=== PATIENT | female | born 1990 | race Caucasian/White ===

== ENCOUNTER → 2016-11-21 | Outpatient (REF) | payer OTHER ==
[~2016-11-21] MED LIST: ACET50TA PO; MOTR200T44 PO; STUATAB PO
[2016-11-21 16:41] LABS: BASO % 0.3 % (0.0-1.0); EOS # 0.2 K/mm3 (0.0-0.50); EOS % 2.6 % (0.0-3.0); LARGE UNSTAINED CELL # 0.1 K/mm3 (0.0-0.4); LARGE UNSTAINED CELL % 1.3 % (0.0-4.0); LYMPH # 2.1 K/mm3 (1.5-6.5); LYMPH % 29.8 % (24.0-44.0); MEAN CORPUSCULAR HEMOGLOBIN 30.5 pg (27.0-33.0); MEAN CORPUSCULAR HGB CONC 33.4 g/dl (32.0-36.5); MEAN CORPUSCULAR VOLUME 91.5 fl (80.0-96.0); MONO # 0.4 K/mm3 (0.0-0.8); MONO % 6.3 % (0.0-5.0); NEUTROPHILS % 59.7 % (36.0-66.0); PLATELET COUNT, AUTOMATED 294 k/mm3 (150-450); RED CELL DISTRIBUTION WIDTH 11.9 % (11.5-14.5); WHITE BLOOD COUNT 6.8 K/mm3 (4.0-10.0)
[2016-11-21 17:43] LABS: ALBUMIN/GLOBULIN RATIO 1.21 (1.00-1.93); ALKALINE PHOSPHATASE 49 U/L (45-117); ALT/SGPT 90 U/L (12-78); ANION GAP 5 MEQ/L (8-16); AST/SGOT 43 U/L (15-37); BILIRUBIN,TOTAL 0.5 MG/DL (0.2-1.0); BLOOD UREA NITROGEN 11 MG/DL (7-18); CALCIUM LEVEL 9.5 MG/DL (8.5-10.1); CARBON DIOXIDE LEVEL 30 MEQ/L (21-32); CHLORIDE LEVEL 106 MEQ/L (98-107); CREATININE FOR GFR 0.68 MG/DL (0.55-1.02); GLOMERULAR FILTRATION RATE > 60.0 (>60); GLUCOSE, FASTING 68 MG/DL (70-105); POTASSIUM SERUM 4.2 MEQ/L (3.5-5.1); SODIUM LEVEL 141 MEQ/L (136-145); TOTAL PROTEIN 7.3 GM/DL (6.4-8.2)
[2016-11-26 14:23] LABS: HEPATITIS C QUANTITATION 219960 IU/mL (.)
== END ==
LOC: M SFHCPLAZ 10:53
PROVIDERS: ATTEND Internal Medicine Infectious Disease
DX: B18.2 Chronic viral hepatitis C (principal)

== ENCOUNTER → 2017-01-02 | Outpatient (REF) | payer OTHER ==
[2017-01-02 19:23] LABS: ALBUMIN 4.2 GM/DL (3.2-5.2); ALBUMIN/GLOBULIN RATIO 1.27 (1.00-1.93); BILIRUBIN,DIRECT 0.2 MG/DL (0.0-0.2); BILIRUBIN,TOTAL 0.5 MG/DL (0.2-1.0); TOTAL PROTEIN 7.5 GM/DL (6.4-8.2)
[2017-01-08 00:09] LABS: HEPATITIS C QUANTITATION HCV Not Detected IU/mL (.)
== END ==
LOC: M SFHCPLAZ 13:08
PROVIDERS: ATTEND Internal Medicine Infectious Disease
DX: B18.2 Chronic viral hepatitis C (principal)

== ENCOUNTER → 2017-06-06 | Outpatient (REF) | payer OTHER ==
[2017-06-06 11:26] LABS: BASO % 0.3 % (0.0-1.0); EOS # 0.2 10^3/uL (0.0-0.50); EOS % 2.4 % (0.0-3.0); IMMATURE GRANULOCYTE % 0.2 % (0-0); LYMPH % 30.6 % (24.0-44.0); MEAN CORPUSCULAR HGB CONC 33.3 g/dl (32.0-36.5); MONO # 0.5 10^3/uL (0.0-0.8); NEUTROPHILS # 3.9 10^3/uL (1.8-7.7); NEUTROPHILS % 59.5 % (36.0-66.0); PLATELET COUNT, AUTOMATED 305 10^3/uL (150-450); RED CELL DISTRIBUTION WIDTH 11.9 % (11.5-14.5); WHITE BLOOD COUNT 6.6 10^3/uL (4.0-10.0)
[2017-06-06 11:46] LABS: ALBUMIN 3.9 GM/DL (3.2-5.2); ALBUMIN/GLOBULIN RATIO 1.11 (1.00-1.93); ALKALINE PHOSPHATASE 46 U/L (45-117); ALT/SGPT 14 U/L (12-78); AST/SGOT 15 U/L (7-37); BILIRUBIN,DIRECT < 0.1 MG/DL (0.0-0.2); BILIRUBIN,TOTAL 0.5 MG/DL (0.2-1.0); TOTAL PROTEIN 7.4 GM/DL (6.4-8.2)
[2017-06-11 08:06] LABS: HEPATITIS C QUANTITATION HCV Not Detected IU/mL (.)
== END ==
LOC: M SFHCPLAZ 08:35
PROVIDERS: ATTEND Internal Medicine Infectious Disease
DX: B18.2 Chronic viral hepatitis C (principal)

== ENCOUNTER → 2018-05-13 | Outpatient (REF) | payer OTHER ==
[2018-05-13 17:00] LABS: ALBUMIN 4.3 GM/DL (3.2-5.2); ALBUMIN/GLOBULIN RATIO 1.19 (1.00-1.93); ALKALINE PHOSPHATASE 48 U/L (45-117); ALT/SGPT 18 U/L (12-78); ANION GAP 9 MEQ/L (8-16); AST/SGOT 13 U/L (7-37); BILIRUBIN,TOTAL 0.3 MG/DL (0.2-1.0); BLOOD UREA NITROGEN 16 MG/DL (7-18); CALCIUM LEVEL 9.3 MG/DL (8.5-10.1); CARBON DIOXIDE LEVEL 27 MEQ/L (21-32); CHLORIDE LEVEL 103 MEQ/L (98-107); CREATININE FOR GFR 0.61 MG/DL (0.55-1.30); GLOMERULAR FILTRATION RATE > 60.0 (>60); GLUCOSE, FASTING 77 MG/DL (70-100); POTASSIUM SERUM 4.2 MEQ/L (3.5-5.1); SODIUM LEVEL 139 MEQ/L (136-145); TOTAL PROTEIN 7.9 GM/DL (6.4-8.2)
== END ==
LOC: M SFHCPLAZ 14:27
DX: Z00.00 Encounter for general adult medical examination without abnormal findings (principal); B18.2 Chronic viral hepatitis C

== ENCOUNTER → 2018-06-01 | Outpatient (CLI) | payer OTHER ==
[~2018-06-01] MED LIST changes: -ACET50TA PO; +MAPA500T17 PO
--- NOTE | 2018-06-02 04:57 | REP ---
Clinical: Pelvic pain. IUD position. Technique: Transabdominal pelvic ultrasound followed by transvaginal examination for better evaluation of the endometrium and adnexa with color Doppler evaluation of the ovaries. Findings: Bladder is unremarkable and measures 6.2 x 9.3 x 10.5 cm . Normal anteverted uterus measures 8.2 x 2.9 x 5.7 cm . The endometrial complex measures 2.9 mm thickness. No discrete uterine or endometrial abnormalities are appreciated. IUD is identified in central, satisfactory position. Right ovary measures 3.0 x 1.9 x 1.6 cm ; Left ovary measures 3.0 x 2.3 x 2.9 cm with 2.2 x 1.6 x 1.7 cm simple appearing physiologic cyst. No pelvic fluid or adnexal mass lesion Impression: 1. IUD in central satisfactory position. Normal uterus. 2. 2.2 cm left ovarian cyst likely simple/physiologic.
== END ==
LOC: M WHC 11:04
PROVIDERS: ATTEND Family Medicine
DX: Z30.431 Encounter for routine checking of intrauterine contraceptive device (principal); N83.202 Unspecified ovarian cyst, left side

== ENCOUNTER 2018-07-03 10:42 | Day surgery (SDC) | payer OTHER ==
[~2018-07-03] VITALS: Ht 157.5 cm; Wt 59.9 kg
[~2018-07-03 10:42] MED LIST changes: +LIDOCAINE 2% INJ 100 MG/5 ML SDV (FOR ANES.) As Ordered ONE; +LR 1,000 ML IV SCH; -MAPA500T17 PO; +MAPA500T2 PO; +MIDAZOLAM INJ 2 MG/2 ML VIAL (J2250) As Ordered ONE; +ONDANSETRON 4MG/2ML VIAL (J2405) As Ordered ONE; +PROPOFOL 200 MG/20 ML VIAL As Ordered ONE; +dexameTHASONE 4 MG/ML 1ML VIAL (J1100) As Ordered ONE; +fentaNYL 100 MCG/2 ML INJECTION (J3010) As Ordered ONE
[2018-07-03 11:21] LABS: HEMATOCRIT 39.9 % (36.0-47.0); HEMOGLOBIN 13.6 g/dl (12.0-15.5); MEAN CORPUSCULAR HEMOGLOBIN 30.8 pg (27.0-33.0); MEAN CORPUSCULAR HGB CONC 34.1 g/dl (32.0-36.5); MEAN CORPUSCULAR VOLUME 90.3 fl (80.0-96.0); PLATELET COUNT, AUTOMATED 258 10^3/uL (150-450); RED BLOOD COUNT 4.42 10^6/uL (4.00-5.40); WHITE BLOOD COUNT 6.6 10^3/uL (4.0-10.0)
[2018-07-03 12:02] LABS: HCG, SERUM QUALITATIVE NEGATIVE (NEGATIVE)
[2018-07-03] MEDS ORDERED: LR 1,000 ML IV SCH (13:15)
[2018-07-03] MEDS ORDERED: PERCOCET 5MG/325MG TAB PO PRN (13:15)
[2018-07-03] MEDS ORDERED: fentaNYL 100 MCG/2 ML INJECTION (J3010) IV PRN (13:15)
[2018-07-03] MEDS ORDERED: ONDANSETRON 4MG/2ML VIAL (J2405) IV PRN (13:15)
[2018-07-03 14:30] VITALS: BP 129/58
--- NOTE | 2018-07-06 14:28 | RO ---
DATE OF PROCEDURE: 07/03/2018 PREOPERATIVE DIAGNOSIS: Retained intrauterine device (IUD). POSTOPERATIVE DIAGNOSIS: Retained intrauterine device. PROCEDURE PERFORMED: Hysteroscopic guided removal of IUD. SURGEON: Rehan Scott DO PE MANAGER: None. ANESTHESIA TYPE: General via laryngeal mask airway (LMA). SPECIMENS SENT TO PATHOLOGY: None. ESTIMATED BLOOD LOSS: 5 mL. FLUIDS REPLACED: 100 mL lactated Ringer's. DRAINS: In-and-out catheter, 20 mL urine output. COMPLICATIONS: None. PREOPERATIVE ANTIBIOTICS: None indicated. INTRAOPERATIVE FINDINGS: Intrauterine, non-imbedded intrauterine device consistent with a Mirena IUD. It was easily removed via hysteroscopic graspers under hysteroscopic guidance. INDICATION: The patient is a 28-year-old with a retained IUD. In-office attempts at IUD removal were unsuccessful. Pelvic ultrasound confirmed intrauterine, proper location of the intrauterine device. The strings were not visualized making it difficult for removal in addition to the patient's discomfort during these attempts. She elected to proceed with hysteroscopic guided IUD removal under anesthesia. PROCEDURE: The patient was counseled and consented on the risks, benefits, indications, and alternatives procedure. Informed consent was obtained. She was taken to the operating room with an IV running, placed on operating room table in dorsal supine position. General anesthesia was administered and the airway secured without any difficulty. She was placed in a high lithotomy position. She was prepared and draped in normal sterile fashion. A time-out was performed per protocol. The bladder was drained with an in-and-out sterile catheter. A sterile speculum was placed with good visualization of the cervix. The anterior lip of the cervix was grasped with a single-tooth tenaculum. Downward traction was applied. The cervix was then sequentially dilated with Bishnu dilators up to #18. The hysteroscope was placed transcervically into the intrauterine cavity with good visualization of the intrauterine device. The hysteroscopic graspers were threaded through and the graspers were used to grab the bottom kathy of the IUD. The IUD was then removed using the graspers. The IUD was removed completely intact. It was noted that the strings had been tucked around the T of the IUD. No missing part of the IUD was confirmed. Minimal bleeding from the cervical os was noted. The hysteroscope was placed. No evidence of uterine perforation. Normal intrauterine cavity was noted. The hysteroscope was removed. Again, no significant bleeding was visualized from the os. The single-tooth tenaculum was removed. Tenaculum sites were noted to be hemostatic. All the instruments were removed from the vagina. Sponge, lap, needle, and sponge counts were correct. The patient tolerated the entire procedure very well. She was transferred to the postanesthesia care unit (PACU) in good and stable condition. YOUNG
== END 2018-07-03 14:34 | disposition home or self-care (01) ==
LOC: M SDC 10:42
PROVIDERS: ATTEND Obstetrics & Gynecology
DX: Z30.432 Encounter for removal of intrauterine contraceptive device (principal)
CPT/HCPCS: 36415; 58562; 84703; 85027; 86850; 86900; 86901; J1100; J2250; J2405; J3010

== ENCOUNTER → 2019-06-15 | Outpatient (CLI) | payer OTHER ==
[~2019-06-15] MED LIST changes: -LIDOCAINE 2% INJ 100 MG/5 ML SDV (FOR ANES.) As Ordered ONE; -LR 1,000 ML IV SCH; -MIDAZOLAM INJ 2 MG/2 ML VIAL (J2250) As Ordered ONE; -ONDANSETRON 4MG/2ML VIAL (J2405) As Ordered ONE; -PROPOFOL 200 MG/20 ML VIAL As Ordered ONE; -dexameTHASONE 4 MG/ML 1ML VIAL (J1100) As Ordered ONE; -fentaNYL 100 MCG/2 ML INJECTION (J3010) As Ordered ONE
[2019-06-15 15:59] LABS: CHLAMYDIA DNA AMPLIFICATION NEGATIVE (NEGATIVE); GC DNA AMPLIFICATION NEGATIVE (NEGATIVE)
== END ==
LOC: M PLALAB 09:12
PROVIDERS: ATTEND Obstetrics & Gynecology
DX: Z34.91 Encounter for supervision of normal pregnancy, unspecified, first trimester (principal)

== ENCOUNTER → 2019-07-08 | Outpatient (CLI) | payer OTHER ==
[2019-07-08 17:54] LABS: BASO % 0.2 % (0.0-1.0); EOS # 0.1 10^3/uL (0.0-0.5); EOS % 0.6 % (0.0-3.0); HEMOGLOBIN 12.3 g/dl (12.0-15.5); LYMPH % 19.6 % (24.0-44.0); MEAN CORPUSCULAR HEMOGLOBIN 29.4 pg (27.0-33.0); MEAN CORPUSCULAR HGB CONC 32.4 g/dl (32.0-36.5); MEAN CORPUSCULAR VOLUME 90.7 fl (80.0-96.0); MONO # 0.5 10^3/uL (0.0-0.8); MONO % 4.6 % (0.0-5.0); NEUTROPHILS # 7.6 10^3/uL (1.5-8.5); NEUTROPHILS % 74.5 % (36.0-66.0); PLATELET COUNT, AUTOMATED 325 10^3/uL (150-450); RED BLOOD COUNT 4.19 10^6/uL (4.00-5.40); WHITE BLOOD COUNT 10.2 10^3/uL (4.0-10.0)
[2019-07-09 11:52] LABS: HIV 1&2 SCREEN CENTAUR NEGATIVE (NEGATIVE); RUBELLA IgG QUALITATIVE IMMUNE (IMMUNE)
[2019-07-09 11:54] LABS: HEPATITIS C VIRUS ABY INDEX > 11.0 INDEX (<0.8)
== END ==
LOC: M PLALAB 12:29
PROVIDERS: ATTEND Obstetrics & Gynecology
DX: Z34.91 Encounter for supervision of normal pregnancy, unspecified, first trimester (principal)

== ENCOUNTER → 2019-07-12 | Outpatient (CLI) | payer OTHER ==
[2019-07-12 13:49] LABS: ALBUMIN 3.4 GM/DL (3.2-5.2); ALT/SGPT 11 U/L (12-78); BILIRUBIN,TOTAL 0.2 MG/DL (0.2-1.0); BLOOD UREA NITROGEN 9 MG/DL (7-18); CALCIUM LEVEL 9.2 MG/DL (8.5-10.1); CARBON DIOXIDE LEVEL 27 MEQ/L (21-32); CHLORIDE LEVEL 106 MEQ/L (98-107); CREATININE FOR GFR 0.52 MG/DL (0.55-1.30); GLOMERULAR FILTRATION RATE > 60.0 (>60); GLUCOSE, FASTING 81 MG/DL (70-100); POTASSIUM SERUM 3.8 MEQ/L (3.5-5.1); SODIUM LEVEL 139 MEQ/L (136-145); TOTAL PROTEIN 6.9 GM/DL (6.4-8.2)
== END ==
LOC: M PLALAB 09:06
PROVIDERS: ATTEND Advanced Practice Midwife
DX: R76.8 Other specified abnormal immunological findings in serum (principal)

== ENCOUNTER → 2019-07-24 | Outpatient (REF) | payer OTHER | LOC: M PLALAB 09:14 | PROVIDERS: ATTEND Obstetrics & Gynecology | DX: Z11.9 Encounter for screening for infectious and parasitic diseases, unspecified (principal) ==

== ENCOUNTER → 2019-08-19 | Outpatient (CLI) | payer OTHER ==
--- NOTE | 2019-08-19 18:08 | REP ---
Obstetric sonography: History: Supervision of . For anatomy. Findings: Scanning through the gravid uterus demonstrates a viable single intrauterine gestation in a variable lie. motion is observed and heart rate is recorded at 140 beats per minute. A posterior low-lying placenta is seen without evidence of abruption. Placenta is grade 1. Closed cervical length measured transabdominally is 3.1 cm. The inferior edge of the placenta is 1.8 cm from the internal cervical os on transabdominal imaging. There is a 1.2 cm cyst in the maternal left ovary consistent with corpus luteum. No anomaly is seen. Facial profile is seen but nose and lips are less than optimally seen. Similarly, less than optimal visualization of the right ventricular outflow tract and spine was achieved due to position. The following additional anatomic structures are identified and felt to be unremarkable: cranium, choroid plexus, cavum, cerebellum and posterior fossa, nuchal fold, four-chamber heart with left ventricular outflow tract, diaphragm, left-sided stomach, abdominal wall cord insertion, three-vessel cord, kidneys and bladder, upper and lower extremities. Biometry chart: BPD 4.1 cm = 18 weeks 3 days HC 14.4 cm = 17 weeks 4 days AC 13.2 cm = 18 weeks 5 days FL 2.6 cm = 17 weeks 6 days HL 2.5 cm = 17 weeks 6 days HC/AC ratio normal 1.09. Cephalic index normal 0.82. Estimated weight 231 grams, 0 pounds 8 ounces, 36 percentile for 18 weeks 4 days. Impression: Viable single intrauterine gestation at 18 weeks 4 days by today's composite sonographic criteria. BIBIANA by sonography January 16, 2020. anatomic survey less than complete regarding face, right ventricular cardiac outflow tract, and spine. Low-lying posterior placenta. Recommend follow up study at which time a transvaginal assessment of the cervix and inferior placental edge can be included.
== END ==
LOC: M WHC 13:49
PROVIDERS: ATTEND Advanced Practice Midwife
DX: Z34.92 Encounter for supervision of normal pregnancy, unspecified, second trimester (principal)

== ENCOUNTER → 2019-09-08 | Outpatient (REF) | payer OTHER | LOC: M PLALAB 11:21 | PROVIDERS: ATTEND Obstetrics & Gynecology | DX: Z34.92 Encounter for supervision of normal pregnancy, unspecified, second trimester (principal) ==

== ENCOUNTER → 2019-10-19 | Outpatient (REF) | payer OTHER ==
[2019-10-19 14:26] LABS: HEMATOCRIT 32.6 % (36.0-47.0); HEMOGLOBIN 10.3 g/dl (12.0-15.5); MEAN CORPUSCULAR HEMOGLOBIN 28.5 pg (27.0-33.0); MEAN CORPUSCULAR HGB CONC 31.6 g/dl (32.0-36.5); MEAN CORPUSCULAR VOLUME 90.1 fl (80.0-96.0); PLATELET COUNT, AUTOMATED 365 10^3/uL (150-450); RED BLOOD COUNT 3.62 10^6/uL (4.00-5.40); WHITE BLOOD COUNT 12.5 10^3/uL (4.0-10.0)
== END ==
LOC: M PLALAB 09:16
PROVIDERS: ATTEND Obstetrics & Gynecology
DX: Z34.92 Encounter for supervision of normal pregnancy, unspecified, second trimester (principal)

== ENCOUNTER → 2019-11-10 | Outpatient (CLI) | payer OTHER ==
--- NOTE | 2019-11-11 03:35 | REP ---
Clinical: History of low-lying placenta Comparison: 08/19/2019 . Findings: Examination demonstrates a single live intrauterine in breech presentation. motion is identified by technologist. Placenta is noted posterior and grade I without evidence for placenta previa or abruption. The placenta measures 5.2 cm from the closed internal os. Amniotic fluid volume is normal. Cervix measures 3.3 cm in length and appears closed. No evidence for nuchal cord. A 5.9 cm simple right maternal ovarian cyst is identified. Gestational age by LMP 30 weeks 3 days with BIBIANA 01/16/2020 . Gestational age by current measurements 29 weeks 5 days with BIBIANA 01/21/2020 . FHR equals 135 beats per minute. Estimated weight 1507 grams ( 35th percentile). Amniotic fluid index: 14.0 cm Anatomical assessment demonstrates normal structures including facial features and spine. Continued limited evaluation of the cardiac ventricular outflow tract. Impression: 1. Single live intrauterine in breech presentation demonstrating appropriate estimated weight and growth. 2. Continued limited evaluation of the right cardiac ventricular outflow tract due to positioning. Remainder of the anatomical assessment and junction with prior examination is complete and normal. 3. No evidence for placenta previa. 4. 5.9 cm simple right ovarian cyst noted.
== END ==
LOC: M WHC 09:08
PROVIDERS: ATTEND Advanced Practice Midwife
DX: O32.1XX0 Maternal care for breech presentation, not applicable or unspecified (principal); O44.43 Low lying placenta NOS or without hemorrhage, third trimester; Z3A.30 30 weeks gestation of pregnancy; N83.201 Unspecified ovarian cyst, right side; O34.83 Maternal care for other abnormalities of pelvic organs, third trimester

== ENCOUNTER 2020-01-21 | Inpatient (IN) | payer OTHER ==
[2020-01-21] MEDS ORDERED: PROMETHAZINE INJ 25 MG/ML VIAL (J2550) ONE (03:50)
[2020-01-21] MEDS ORDERED: BUTORPHANOL 2 MG/ML INJ (J0595) ONE (03:50)
[2020-01-21] MEDS ORDERED: ACETAMINOPHEN 500 MG TAB ONE ×2 (10:05→20:13)
[2020-01-21] MEDS ORDERED: OXYTOCIN 30 UNITS IN 0.9% NaCl 500ML IV BAG (J2590) ONE (12:54)
[2020-01-21] MEDS ORDERED: IBUPROFEN 800 MG TAB ONE (15:10)
[2020-01-22] MEDS ORDERED: IBUPROFEN 800 MG TAB ONE (05:48)
[2020-03-08 21:24] LABS: HEMATOCRIT 26.8 % (36.0-47.0); MEAN CORPUSCULAR HEMOGLOBIN 22.3 pg (27.0-33.0); MEAN CORPUSCULAR HGB CONC 29.9 g/dl (32.0-36.5); MEAN CORPUSCULAR VOLUME 74.9 fl (80.0-96.0); PLATELET COUNT, AUTOMATED 331 10^3/uL (150-450); RED BLOOD COUNT 3.58 10^6/uL (4.00-5.40); WHITE BLOOD COUNT 14.8 10^3/uL (4.0-10.0)
== END 2020-01-22 12:50 | disposition home or self-care (01) | DRG 560 ==
LOC: M LDI
PROVIDERS: ADMIT Specialist; ATTEND Specialist
PROC: 10E0XZZ Delivery of Products of Conception, External Approach (ICD-10-PCS; principal; 2020-01-21)
DX: O48.0 Post-term pregnancy (principal); Z37.0 Single live birth; Z3A.40 40 weeks gestation of pregnancy

== ENCOUNTER 2021-04-16 09:57 | Emergency (ER) | payer OTHER ==
[~2021-04-16] VITALS: Ht 157.5 cm; Wt 59.5 kg
[2021-04-16] MEDS: NS 1,000 ML IV SCH ×2 (10:00→17:22)
--- OUTSIDE RECORDS SUMMARY | 2021-04-16 10:04 | CCD ---
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 98 Active confirmed 62362666 Problem Cigarette smoker F17.210 Active confirmed 65 780344 Problem Anxiety and depression F41.9 Active confirmed 032513690 Problem Chronic hepatitis C without hepatic coma B18.2 Active confirmed 493878454 Problem Alcohol abuse, 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 Active confirmed 991068523 ALLERGIES Allergen (clinical drug ingredient) Drug/Non Drug Allergy do cumented on EMR Reaction Allergy Type Onset Date Status Seasonal Unknown Non Drug Allergy Active ENCOUNTERS from 1992 to 2021-04-05 Encounter Location Date Provider Diagnosis [facility] [address] [place] [id number] [place] [address] Mar, Lynn Villegas Encounter for ins ertion of mirena IUD Z30.430 and Screen for sexually transmitted diseases Z11.3 IMMUNIZATIONS Vaccine Route Administration Date Status HPV9 0.5mL Gardasil 9 Unknown Jun 20, 2008 Administer ed Meningococcal 0.5mL Menactra Groups A,C,Y & W-135 Unknown Mar 22, 2008 Administered TDAP 0.5mL (Boostrix) IM Intramuscular November 24, 2019 Administe red Hepatitis B Ped & Adol 0.5mL Engerix-B Unknown December 11, 2004 Administered TDAP 0.5mL (Boostrix) Unknown Mar 22, 2008 Administer ed TDAP 0.5mL (Boostrix) Unknown Apr 03, 2014 Administer ed HPV9 0.5mL Gardasil 9 Unknown Apr 04, 2008 Administer ed DTAP 0.5mL Infanrix Unknown 1992 Administered Influenza 6mo & up Fluzone Unknown Apr 03, 2009 Admin istered Influenza 6mo & up Fluzone Unknown Mar 29, 2009 Admin istered HIB 0.5mL Unknown 1992 Administered HIB 0.5mL Unknown 1992 Administered DTAP 0.5mL Infanrix Unknown Feb 17, 1996 Administered DTAP 0.5mL Infanrix Unknown August 23, 1993 Administered DTAP 0.5mL Infanrix Unknown May 04, 1993 Administered DTAP 0.5mL Infanrix Unknown 1992 Administered Influenza 6mo & up Fluzone IM Intramuscular May 13, 2018 Admi nistered Hepatitis A Ped & Adol 0.5mL Havrix Unknown Apr 04, 2008 Administered Imm: IPV 0.5mL Polio Unknown 1992 Administere d Imm: IPV 0.5mL Polio Unknown 1992 Administere d Influenza 6mo & up Fluzone Unknown Apr 22, 2016 Other s Influenza 6mo & up Fluzone IM Intramuscular Mar 19, 2017 Admi nistered Influenza 6mo & up Fluzone Unknown Mar 19, 2017 Admin istered Imm: IPV 0.5mL Polio Unknown August 23, 1993 Administere d Imm: IPV 0.5mL Polio Unknown Feb 17, 1996 Administere d Hepatitis B Ped & Adol 0.5mL Engerix-B Unknown October 04, 2004 Administered SOCIAL HISTORY Tobacco Use: Social History Observation Description Date Details (start date - stop date) Former Smoker Sex Assigned At : Social History Observation Description Sex Assigned At Unknown Education: Question Answer Notes Level of Education: GED continuing educa tion with College @ [employer] 2015 Audit Question Answer Notes Total Score: 1 Interpretation: Alcohol Education Sexual Hx: Question Answer Notes Had sex in the last 12 months (vaginal, oral, or anal)? Yes LMP: Mirena Have you ever had an STD? No Prevention Strategies discussed: Other with Men only Use protection? No Drug and Alcohol Question Answer Notes Total Score: 0 Interpretation: No problems reported Alcohol Screening: Question Answer Notes Did you have a drink containing alcohol in the past year? No Points 0 Interpretation Negative Tobacco Use: Question Answer Notes Are you a: former smoker former smoker quit Additional Findings: Tobacco User Light cigarette smoker ((1 -9 cigs/day) How long has it been since you last smoked? 1-3 months REASON FOR REFERRAL No Information VITAL SIGNS Weight 128 lbs Mar, Weight-kg 58.06 kg Mar, Height 62 in Mar, BMI 23.41 kg/m2 Mar, Blood pressure systolic 120 mm Hg Mar, Blood pressure diastolic 76 mm Hg Mar, MEDICATIONS Medication SIG (Take, Route, Frequency, Duration) Notes Start Da te End Date Status Omeprazole 20 MG 1 capsule 30 minutes before morning meal Orally Once a day for 30 day(s) Not-Taking Wrist Splint - as directed right wrist q night for 99 months Mar, Not-Taking Wrist Splint - as directed right wrist dx: M77.8 for 99 months Apr, Not-Taking Mirena 20 MCG/24HR Intrauterine Placed 06/2014 Not-Taking Promethazine HCl 25 MG 1 tablet as needed Orally every 6 hrs for 30 day(s) May, Not-Taking Nicotine Step 2 14 MG/24HR 1 patch to skin Transdermal Once a day for 30 day(s) Apr, Not-Taking 27-1 MG 1 tablet Orally Once a day Not-Taking PROCEDURES from 1992 to 2021-04-05 Procedure Date Ordered Result Body Site URINE TEST 2021-04-03 Negative Medication: Mirena 52 mg (Levonorgestrel -releasing intrauterine contraceptive system) 2021-04-03 N/A RESULTS No Results REASON FOR VISIT mirena insert. Delivered December 2019. No current contraception. LMP last week. 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 Goals Section No Information Health Concerns No Information MEDICAL EQUIPMENT No Information MENTAL STATUS No Information FUNCTIONAL STATUS No Information ASSESSMENTS Encounter Date Diagnosis Assessment Notes Treatment Notes Treatm ent Clinical Notes Mar, Screen for sexually transmitted diseases (ICD-10 - Z11.3) Mar, Encounter for insertion of mirena IUD (ICD-10 - Z30.430) PLAN OF TREATMENT Treatment Notes Test Name Order Date Vaginitis Plus (VG+) with Yaima (NuSwab) 2021-04-03 Next Appt Details 4 Weeks Reason:annual/IUD check Provider Name:Lynn Villegas, 2021-05-03 10:20:00 AM, [address] [facility], , [place], [address], Follow Up:4 Weeksannual/IUD check Insurance Providers Payer Name Payer Address Payer Phone Insured Name Patient Relati onship to Insured Coverage Start Date Coverage End Date FOR[facility] [employer] [address] [facility] [phone] TRINY VERA self
--- OUTSIDE RECORDS SUMMARY | 2021-04-16 10:04 | CCD ---
Author Author Rebecca Schmitd Organization Unknown Address [address] [address] Phone Care Team Providers Care Legal Job Titles Name Role Phone Neli Schmidt PCP Allergies, Adverse Reactions, Alerts No Data in Section Problem List Concept Problem Description Status Start Date Created Date Resolv ed Date Snomed Code F43.22 Adjustment Disorder, With anxiety Active 2020 Medications No Data in Section Social History Social History Element Description Concept Effective Date Smoking Status Unknown if ever smoked [id number] Immunizations No Data in Section Vital Signs No Data in Section Procedures Date Concept Id Description Targeted Site Concept Targeted Site Concept Type 03/07/2021 13204 Extended Individual Psychotherapy - 45 min CPT Patient has no history of implantable de vices Encounters Encounter Start Date End Date Encounter Type Description Diagnosis Di agnosis Desc Location Author First Name Author Last Name Npid Taxonomy Cod e Taxonomy Desc Phone Number Location Addr1 Location Addr2 Location [facility] Location [facility] Location [facility] [id number] 03/07/2021 03/07/2021 05542 Extended Individual Psych otherapy - 45 min F43.22 Adjustment disorder with anxiety [facility] Brayan Quinteros [phone] [id number] [employer] [phone] [address] [address] Plan of Treatment No Data in Section Lab Results No Data in Section Instructions No Data in Section Insurance Providers Insurance Id Policy Effective Date Policy Thru Date Company N karol [id number] 2020 [employer] Managed Evelyn eckert
--- OUTSIDE RECORDS SUMMARY | 2021-04-16 10:04 | CCD ---
Author Author Rebecca Quiroz Organization Unknown Address [address] [address] Phone Care Team Providers Care Leather Stretcher Name Role Phone Melvi Quiroz PCP Allergies, Adverse Reactions, Alerts No Data in Section Problem List Concept Problem Description Status Start Date Created Date Resolv ed Date Snomed Code F43.22 Adjustment Disorder, With anxiety Active 2020 Medications No Data in Section Social History Social History Element Description Concept Effective Date Smoking Status Unknown if ever smoked [id number] Immunizations No Data in Section Vital Signs Encounter Date Height Ins Weight Lbs Bmi Bp Systolic Bp Diastoli c Oxygen Saturation Respiration Rate Pulse Rate Body Temp Head Circumference Heigh t Lying 04/06/2021 62.25 103.00 18.69 102 60 0.00 18 84 0.00 0.0 0. 00 Procedures Date Concept Id Description Targeted Site Concept Targeted Site Concept Type 04/06/2021 87618 Health Monitoring - 15 Min CPT Patient has no history of implantable de vices Encounters Encounter Start Date End Date Encounter Type Description Diagnosis Di agnosis Desc Location Author First Name Author Last Name Npid Taxonomy Cod e Taxonomy Desc Phone Number Location Addr1 Location Addr2 Location [facility] Location [facility] [id number] 04/06/2021 04/06/2021 11996 Health Monitoring - 15 Min F 43.22 Adjustment disorder with anxiety [facility] Kelleyhimanshu Alfredo olea [id number] Licensed Practical Nurse [phone] [address] [address] Plan of Treatment No Data in Section Lab Results No Data in Section Instructions No Data in Section Functional Cognitive Status No Data in Section Insurance Providers Insurance Id Policy Effective Date Policy Thru Date Company N karol [id number] 2020 [employer] Managed Evelyn eckert
--- OUTSIDE RECORDS SUMMARY | 2021-04-16 10:04 | CCD ---
Author Author [facility] Organization [facility] Address Unknown Phone Unavailable Care Team Providers Care Music Librarian Name Role Phone Maring, Loc PA Unavailable Unavailable Maring, Loc PA Unavailable Unavailable Maring, Loc PA Unavailable Unavailable Maring, Loc PA Unavailable Unavailable Maring, Loc PA Unavailable Unavailable Maring, Loc PA Unavailable Unavailable Maring, Loc PA Unavailable Unavailable Maring, Loc PA Unavailable Unavailable Maring, Loc PA Unavailable Unavailable Maring, Loc PA Unavailable Unavailable Maring, Loc PA Unavailable Unavailable Maring, Loc PA Unavailable Unavailable Maring, Loc PA Unavailable Unavailable Maring, Loc PA Unavailable Unavailable Maring, Loc PA Unavailable Unavailable Maring, Loc PA Unavailable Unavailable Nicci Fry MD Unavailable Unavailable Nicci Fry MD Unavailable Unavailable Nicci Fry MD Unavailable Unavailable Nicci Fry MD Unavailable Unavailable Nicci Fry MD Unavailable Unavailable Nicci Fry MD Unavailable Unavailable Nicci Fry MD Unavailable Unavailable Nicci Fry MD Unavailable Unavailable Nicci Fry MD Unavailable Unavailable Nicci Fry MD Unavailable Unavailable Nicci Fry MD Unavailable Unavailable Nicci Fry MD Unavailable Unavailable Nicci Fry MD Unavailable Unavailable Nicci Fry MD Unavailable Unavailable Nicci Fry MD Unavailable Unavailable Nicci Fry MD Unavailable Unavailable Nicci Fry MD Unavailable Unavailable Nicci Fry MD Unavailable Unavailable Nicci Fry MD Unavailable Unavailable Nicci Fry MD Unavailable Unavailable Nicci Fry MD Unavailable Unavailable Nicci Fry MD Unavailable Unavailable Nicci Fry MD Unavailable Unavailable Nicci Fry MD Unavailable Unavailable Nicci Fry MD Unavailable Unavailable Nicci Fry MD Unavailable Unavailable Nicci Fry MD Unavailable Unavailable Nicci Fry MD Unavailable Unavailable Nicci Fry MD Unavailable Unavailable Nicci Fry MD Unavailable Unavailable Nicci Fry MD Unavailable Unavailable Nicci Fry MD Unavailable Unavailable Nicci Fry MD Unavailable Unavailable Nicci Fry MD Unavailable Unavailable Nicci Fry MD Unavailable Unavailable Nicci Fry MD Unavailable Unavailable Nicci Fry MD Unavailable Unavailable Nicci Fry MD Unavailable Unavailable Nicci Fry MD Unavailable Unavailable Nicci Fry MD Unavailable Unavailable Nicci Fry MD Unavailable Unavailable Nicci Fry MD Unavailable Unavailable Nicci Fry MD Unavailable Unavailable Nicci Fry MD Unavailable Unavailable Nicci Fry MD Unavailable Unavailable Nicci Fry MD Unavailable Unavailable Nicci Fry MD Unavailable Unavailable Nicci Fry MD Unavailable Unavailable Nicci Fry MD Unavailable Unavailable Nicci Fry MD Unavailable Unavailable Nicci Fry MD Unavailable Unavailable Nicci Fry MD Unavailable Unavailable Nicci Fry MD Unavailable Unavailable Nicci Fry MD Unavailable Unavailable Nicci Fry MD Unavailable Unavailable Nicci Fry MD Unavailable Unavailable Nicci Fry MD Unavailable Unavailable Nicci Fry MD Unavailable Unavailable Nicci Fry MD Unavailable Unavailable Nicci Fry MD Unavailable Unavailable Nicci Fry MD Unavailable Unavailable Nicci Fry MD Unavailable Unavailable Nicci Fry MD Unavailable Unavailable Nicci Fry MD Unavailable Unavailable Nicci Fry MD Unavailable Unavailable Nicci Fry MD Unavailable Unavailable Nicci Fry MD Unavailable Unavailable Nicci Fry MD Unavailable Unavailable Nicci Fry MD Unavailable Unavailable Nicci Fry MD Unavailable Unavailable Nicci Fry MD Unavailable Unavailable Nicci Fry MD Unavailable Unavailable Nicci Fry MD Unavailable Unavailable Nicci Fry MD Unavailable Unavailable Nicci Fry MD Unavailable Unavailable Nicci Fry MD Unavailable Unavailable Nicci Fry MD Unavailable Unavailable Nicci Fry MD Unavailable Unavailable Nicci Fry MD Unavailable Unavailable Nicci Fry MD Unavailable Unavailable Nicci Fry MD Unavailable Unavailable Nicci Fry MD Unavailable Unavailable Nicci Fry MD Unavailable Unavailable Nicci Fry MD Unavailable Unavailable Nicci Fry MD Unavailable Unavailable Nicci Fry MD Unavailable Unavailable Nicci Fry MD Unavailable Unavailable Nicci Fry MD Unavailable Unavailable Nicci Fry MD Unavailable Unavailable Nicci Fry MD Unavailable Unavailable Nicci Fry MD Unavailable Unavailable Nicci Fry MD Unavailable Unavailable Nicci Fry MD Unavailable Unavailable Neli Schmidt Unavailable Rothimanshu, Melvi Unavailable Unavailable Sheldon, Wallula Lida Unavailable Unavailable Sheldon, Wallula Lida Unavailable Unavailable Sheldon, Wallula Lida Unavailable Unavailable Sheldon, Wallula Lida Unavailable Unavailable Sheldon, Wallula Lida Unavailable Unavailable Sheldon, Wallula Lida Unavailable Unavailable Sheldon, Wallula Lida Unavailable Unavailable Sheldon, Wallula Lida Unavailable Unavailable Sheldon, Wallula Lida Unavailable Unavailable Sheldon, Wallula Lida Unavailable Unavailable Sheldon, Wallula Lida Unavailable Unavailable Sheldon, Wallula Lida Unavailable Unavailable Shedlon, Wallula Lida Unavailable Unavailable Re-disclosure Warning The records that you are about to access may contain information from federally-assisted alcohol or drug abuse programs. If such information is present, then the following federally mandated warning applies: This information has been disclosed to you from records protected by federal confidentiality rules (42 CFR part 2). The federal rules prohibit you from making any further disclosure of this information unless further disclosure is expressly permitted by the written consent of the person to whom it pertains or as otherwise permitted by 42 CFR part 2. A general authorization for the release of medical or other information is NOT sufficient for this purpose. The Federal rules restrict any use of the information to criminally investigate or prosecute any alcohol or drug abuse patient.The records that you are about to access may contain highly sensitive health information, the redisclosure of which is protected by Article 27-F of the [place] State Public Health law. If you continue you may have access to information: Regarding HIV / AIDS; Provided by facilities licensed or operated by the [facility] Office of Mental Health; or Provided by the [facility] Office for People With Developmental Disabilities. If such information is present, then the following [facility] mandated warning applies: This information has been disclosed to you from confidential records which are protected by state law. State law prohibits you from making any further disclosure of this information without the specific written consent of the person to whom it pertains, or as otherwise permitted by law. Any unauthorized further disclosure in violation of state law may result in a fine or mcc sentence or both. A general authorization for the release of medical or other information is NOT sufficient authorization for further disc losure. Family History Family Member Name Family Member Gender Family Member Status Date o f Status Description Data Source(s) Unknown Unknown Problem MEDENT ([facility], ) Unknown Male Problem [facility] ([facility] Encounters Encounter Providers Location Date Indications Data Source(s ) Extended Individual Psychotherapy - 45 min Attender: [facility] 04/06/2021 12:15:00 PM EDT - 04/06/2021 12:15:00 PM EDT [facility] ([facility]) Health Monitoring - 15 Min Attender: Melvi Quiroz [facility] 04/06/2021 11:15:00 AM EDT - 04/06/2021 11:15:00 AM EDT [facility] ([facility]) Attender: Melvi Quiroz 04/06/2021 12:00:00 AM EDT [facility] ([facility]) Attender: Neli Archibaldce 04/06/2021 12:00:00 AM EDT [facility] ([facility]) ([place]) [facility] Procedure [address] [place] [address] 04/03/2021 12:00:00 AM EDT eCW1 ([facility]) Extended Individual Psychotherapy - 45 min Attender: [facility] 03/07/2021 12:00:00 PM EDT - 03/07/2021 12:00:00 PM EDT [facility] ([facility]) Attender: Neli Brayan 03/07/2021 12:00:00 AM EDT [facility] ([facility]) Extended Individual Psychotherapy - 45 min Attender: [facility] 02/21/2021 12:00:00 PM EDT - 02/21/2021 12:00:00 PM EDT [facility] ([facility]) Attender: Neli Schmidt 02/21/2021 12:00:00 AM EDT [facility] ([facility]) Extended Individual Psychotherapy - 45 min Attender: Matthew eleonora [facility] 01/24/2021 12:00:00 PM EDT - 01/24/2021 12:00:00 PM EDT [facility] ([facility]) Attender: Neli Schmidt 01/24/2021 12:00:00 AM EDT [facility] ([facility]) Extended Individual Psychotherapy - 45 min Attender: Matthew eleonora [facility] 01/10/2021 12:00:00 PM EDT - 01/10/2021 12:00:00 PM EDT [facility] ([facility]) Attender: Neli Archibaldce 01/10/2021 12:00:00 AM EDT [facility] ([facility]) Extended Individual Psychotherapy - 45 min Attender: Matthew eleonora [facility] 12/27/2020 12:00:00 PM EDT - 12/27/2020 12:00:00 PM EDT [facility] ([facility]) Attender: Neli Archibaldce 12/27/2020 12:00:00 AM EDT [facility] ([facility]) Psychiatric Diagnostic Evaluation (Non-Medical) Attender: Sanjay Schmidt [facility] 12/14/2020 10:00:00 AM EDT - 12/14/2020 10:00:00 AM EDT [facility] ([facility]) Attender: Neli Archibaldce 12/14/2020 12:00:00 AM EDT [facility] ([facility]) Brief Individual Psychotherapy - 30 min Attender: Neli mckeon [facility] 11/24/2020 02:00:00 AM EDT - 11/24/2020 02:00:00 AM EDT [facility] ([facility]) Attender: Neli Schmidt 11/24/2020 12:00:00 AM EDT [facility] ([facility]) Outpatient Attender: Loc NEGRON 09/23/19 01:50:58 PM EDT - 09/22/2020 02:26:53 PM EDT [facility] ([facility] ) DAYAMI TarangoP-C: [address] [place] [address], Ph. Attender: Lida Sheldon [facility] 07/11/2020 12:00:00 AM EST [facility] ([facility]) Carlos Fry MD: [address] [place] [address], Ph. Attender: Carlos Fry MD [facility] 06/13/2020 12:00:00 AM EST [facility] ([facility]) Carlos Fry MD: [address] [place] [address], Ph. Attender: Carlos Fry MD [facility] 06/13/2020 12:00:00 AM EST [facility]ERY[facility] ([facility]) Carlos Fry MD: [address] [place] [address], Ph. Attender: Carlos Fry MD [facility] 06/13/2020 12:00:00 AM EST [facility] ([facility]) Functional Status Immunizations Vaccine Date Status Description Data Source(s) COVID-19, mRNA, LNP-S, PF, 100 mcg/0.5 mL dose 07/11/2020 11 :08:17 AM EST completed 10.5 mL [facility] ([facility]) COVID-19 VACCINE Moderna 07/11/2020 12:00:00 AM EST [facility] Complete: YESThis Data wa s Submitted to [facility] COVID-19, mRNA, LNP-S, PF, 100 mcg/0.5 mL dose 06/13/2020 10 :39:41 AM EST completed 06/13/20200.5 mL [facility]ERYL ([facility]) COVID-19, mRNA, LNP-S, PF, 100 mcg/0.5 mL dose 06/13/2020 10 :39:41 AM EST completed 06/13/20200.5 mL CHERYL ([facility]) COVID-19, mRNA, LNP-S, PF, 100 mcg/0.5 mL dose 06/13/2020 10 :39:41 AM EST completed 06/13/20200.5 mL [facility]ERYL ([facility]) COVID-19 VACCINE Moderna 06/13/2020 12:00:00 AM EST completed [facility] Vaccine Series Complete: NOThis Data was Submitted to [facility] Via [employer]. Medications No Information Insurance Providers Payer name Policy type / Coverage type Policy ID Covered green party ID Covered green party's relationship to krueger Policy Krueger Plan Information [facility] COMMUNITY PLAN [facility] [id number] SP [id number] [facility] COMMUNITY PLAN [facility] [id number] SP [id number] [facility] Commercial [id number] Self 1 [id number] [facility] Commercial [id number] Self 1 [id number] [facility] Commercial [id number] Self 1 [id number] [facility] Commercial [id number] Self 1 [id number] [facility] o Commercial [id number] Self 1 [id number] [facility] [id number] Self 1 [id number] [facility] Commercial [id number] Self 1 [id number] [facility] [id number] Employee [id number] [facility] Commercial Insurance Co. [id number] Self [id number] Medicaid S UNAVAILABLE S UNAVAILA BLE SELF PAY UNAVAILABLE SP UNAVAILA BLE UN COMMUNITY PLAN [facility] [id number] SP [id number] MEDICAID - O/P EMERGENCY ROOM [id number] Medicaid S [id number] Managed Care BCBS P [id number] S [id number] [facility] O [id number] S [id number] [facility] Health Maintenance Organization (HMO) [id number] Self [id number] ANSI-Medicaid [id number] ANSI-Medicaid [id number] ANSI-Medicaid [id number] [facility] COMMUNITY PLAN [facility] [id number] SP [id number] MEDICAID [id number] SP [id number] [employer]IC[employer] XIX O [id number] 18 [id number] Problems, Conditions, and Diagnoses Code Display Name Description Problem Type Effective Dates Data Source(s) F43.22 Adjustment disorder with anxiety Adjustment Diso rder, With anxiety Condition 04/06/2021 12:00:00 AM EDT [facility] ([facility]) [id number] SNOMED CT Concept SNOMED CT Concept Problem 03/30 05:36:13 PM EDT [facility] ([facility]) [id number] SNOMED CT Concept SNOMED CT Concept Problem 03/30 05:36:13 PM EDT [facility] ([facility]) [id number] SNOMED CT Concept SNOMED CT Concept Problem 03/30 05:36:13 PM EDT [facility] ([facility]) Surgeries/Procedures Procedure Description Date Indications Data Source(s) 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 FACTOR REDJ SPX 15 MIN 04/06/2021 12:00:00 AM EDT - 04/06/2021 12:00:00 AM EDT [facility] 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 FACTOR REDJ SPX 15 MIN 04/06 12:00:00 AM EDT [facility] ([facility]) Extended Individual Psychotherapy - 45 min 04/06/2021 12:00:00 AM EDT - 04/06/2021 12:00:00 AM EDT [facility] Extended Individual Psychotherapy - 45 min 12:00:00 AM EDT [facility] ([facility]) Medication: Mirena 52 mg (Levonorgestrel -releasing intrauterine contraceptive system) 04/03/2021 12:00:00 AM EDT eCW1 ([facility]) URINE TEST 04/03/2021 12:00:00 AM EDT eCW1 ([facility]) Extended Individual Psychotherapy - 45 min 03/07/2021 12:00:00 AM EDT - 03/07/2021 12:00:00 AM EDT [facility] Extended Individual Psychotherapy - 45 min 12:00:00 AM EDT [facility] ([facility]) Extended Individual Psychotherapy - 45 min 02/21/2021 12:00:00 AM EDT - 02/21/2021 12:00:00 AM EDT [facility] Extended Individual Psychotherapy - 45 min 12:00:00 AM EDT [facility] ([facility]) Extended Individual Psychotherapy - 45 min 01/24/2021 12:00:00 AM EDT - 01/24/2021 12:00:00 AM EDT [facility] Extended Individual Psychotherapy - 45 min 12:00:00 AM EDT [facility] ([facility]) Extended Individual Psychotherapy - 45 min 01/10/2021 12:00:00 AM EDT - 01/10/2021 12:00:00 AM EDT [facility] Extended Individual Psychotherapy - 45 min 12:00:00 AM EDT [facility] ([facility]) Extended Individual Psychotherapy - 45 min 12/27/2020 12:00:00 AM EDT - 12/27/2020 12:00:00 AM EDT [facility] Extended Individual Psychotherapy - 45 min 12:00:00 AM EDT [facility] ([facility]) Psychiatric Diagnostic Evaluation (Non-Medical) 12/14/2020 12:00:00 AM EDT - 12/14/2020 12:00:00 AM EDT [facility] Psychiatric Diagnostic Evaluation (Non-Medical) 2020 12:00:00 AM EDT [facility] ([facility]) Brief Individual Psychotherapy - 30 min 11/24/2020 12:00:00 AM EDT - 11/24/2020 12:00:00 AM EDT [facility] Brief Individual Psychotherapy - 30 min 11/24/2020 12: 00:00 AM EDT [facility] ([facility]) Results ID Date Data Source [id number] 06/11/2020 12:00:00 AM EST [facility] Name Value Range Interpretation Code Description Data Tori rce(s) Supporting Document(s) SARS coronavirus 2 RNA [Presence] in Res piratory specimen by ALEAH with probe detection [facility] This lab was ordered by April Max and reported by [facility]. ID Date Data Source [id number] 06/11/2020 12:00:00 AM [facility] Name Value Range Interpretation Code Description Data Tori rce(s) Supporting Document(s) Carestart Rapid COVID Antigen Test [facility] This lab was reported by April campos. Procedure Social History Code Duration Value Status Description Data Source(s ) Smoking 04/06/2021 12:00:00 AM EDT Unknown if ever smoked comp leted Unknown if ever smoked [facility] ([facility]) Smoking 04/03/2021 12:00:00 AM EDT Former Smoker completed Former Smoker eCW1 ([facility]) Smoking 03/07/2021 12:00:00 AM EDT Unknown if ever smoked comp leted Unknown if ever smoked [facility] ([facility]) Smoking 02/21/2021 12:00:00 AM EDT Unknown if ever smoked comp leted Unknown if ever smoked [facility] ([facility]) Smoking 01/24/2021 12:00:00 AM EDT Unknown if ever smoked comp leted Unknown if ever smoked [facility] ([facility]) Smoking 01/10/2021 12:00:00 AM EDT Unknown if ever smoked comp leted Unknown if ever smoked [facility] ([facility]) Smoking 12/27/2020 12:00:00 AM EDT Unknown if ever smoked comp leted Unknown if ever smoked [facility] ([facility]) Smoking 12/14/2020 12:00:00 AM EDT Unknown if ever smoked comp leted Unknown if ever smoked [facility] ([facility]) Smoking 11/24/2020 12:00:00 AM EDT Unknown if ever smoked comp leted Unknown if ever smoked [facility] ([facility]) Vital Signs ID Date Data Source UNK Name Value Range Interpretation Code Description Data Source(s) Body height 62.25 in Normal (applies to non-numeric resu lts) 62.25 in [facility] ([facility]) Body weight Measured 103.00 lbs Normal (applies to n on-numeric results) 103.00 lbs [facility] ([facility]) Body mass index (BMI) [Ratio] 18.69 kg/m2 No rmal (applies to non-numeric results) 18.69 kg/m2 [facility] ([facility]) Systolic blood pressure 102 mm[Hg] Normal (applies t o non-numeric results) 102 mm[Hg] [facility] ([facility]) Diastolic blood pressure 60 mm[Hg] Normal (applies to non-numeric results) 60 mm[Hg] [facility] ([facility]) Body height --lying 84 min Normal (applies to non-nume ashkan results) 84 min [facility] ([facility]) Respiratory rate 18 min Normal (applies to non-numeric results) 18 min [facility] ([facility]) Body weight 128 [lb_av] 128 [lb_av] eCW1 ([facility]) Body weight 58.06 kg 58.06 kg W1 ([facility]) Body height 62 [in_i] 62 [in_i] eCW1 ([facility]) Body mass index (BMI) [Ratio] 23.41 kg/m2 23.41 kg/m2 eCW1 ([facility]) Systolic blood pressure 120 mm[Hg] 120 mm[Hg] e CW1 ([facility]) Diastolic blood pressure 76 mm[Hg] 76 mm[Hg] eCW1 ([facility])
--- OUTSIDE RECORDS SUMMARY | 2021-04-16 10:04 | CCD ---
Author Author Rebecca Schmidt Organization Unknown Address [address] [address] Phone Care Team Providers Care Thread Milling Machine Set Up Operator Name Role Phone Neli Schmidt PCP Allergies, Adverse Reactions, Alerts No Data in Section Problem List Concept Problem Description Status Start Date Created Date Resolv ed Date Snomed Code F43.22 Adjustment Disorder, With anxiety Active 2020 Medications No Data in Section Social History Social History Element Description Concept Effective Date Smoking Status Unknown if ever smoked [id number] Immunizations No Data in Section Vital Signs No Data in Section Procedures Date Concept Id Description Targeted Site Concept Targeted Site Concept Type 01/24/2021 83433 Extended Individual Psychotherapy - 45 min CPT Patient has no history of implantable de vices Encounters Encounter Start Date End Date Encounter Type Description Diagnosis Di agnosis Desc Location Author First Name Author Last Name Npid Taxonomy Cod e Taxonomy Desc Phone Number Location Addr1 Location Addr2 Location [facility] Location [facility] Location [facility] [id number] 01/24/2021 01/24/2021 72717 Extended Individual Psych otherapy - 45 min F43.22 Adjustment disorder with anxiety [facility] Brayan Quinteros [id number] [employer] [id number] [address] [address] Plan of Treatment No Data in Section Lab Results No Data in Section Instructions No Data in Section Insurance Providers Insurance Id Policy Effective Date Policy Thru Date Company N karol [id number] [employer] Managed Evelyn eckert
--- OUTSIDE RECORDS SUMMARY | 2021-04-16 10:04 | CCD ---
Author Author Rebecca Quiroz Organization Unknown Address [address] [address] Phone Care Team Providers Care Biotechnologist Name Role Phone Melvi Quiroz PCP Allergies, Adverse Reactions, Alerts No Data in Section Problem List Concept Problem Description Status Start Date Created Date Resolv ed Date Snomed Code F43.22 Adjustment Disorder, With anxiety Active 2020 Medications No Data in Section Social History Social History Element Description Concept Effective Date Smoking Status Unknown if ever smoked [id number] Immunizations No Data in Section Vital Signs Encounter Date Height Ins Weight Lbs Bmi Bp Systolic Bp Diastoli c Oxygen Saturation Respiration Rate Pulse Rate Body Temp Head Circumference Heigh t Lying 04/06/2021 62.25 103.00 18.69 102 60 0.00 18 84 0.00 0.0 0. 00 Procedures Date Concept Id Description Targeted Site Concept Targeted Site Concept Type 04/06/2021 82701 Health Monitoring - 15 Min CPT Patient has no history of implantable de vices Encounters Encounter Start Date End Date Encounter Type Description Diagnosis Di agnosis Desc Location Author First Name Author Last Name Npid Taxonomy Cod e Taxonomy Desc Phone Number Location Addr1 Location Addr2 Location [facility] Location [facility] [id number] 04/06/2021 04/06/2021 40395 Health Monitoring - 15 Min F 43.22 Adjustment disorder with anxiety [facility] Kelleyhimanshu Alfredo olea [id number] Licensed Practical Nurse [id number] [address] [address] Plan of Treatment No Data in Section Lab Results No Data in Section Instructions No Data in Section Functional Cognitive Status No Data in Section Insurance Providers Insurance Id Policy Effective Date Policy Thru Date Company N karol [id number] 2020 [employer] Man[employer] Evelyn eckert
--- OUTSIDE RECORDS SUMMARY | 2021-04-16 10:04 | CCD ---
Author Author Rebecca Schmidt Organization Unknown Address [address] [address] Phone Care Team Providers Care Oracle Obiee Developer Name Role Phone Neli Schmidt PCP Allergies, Adverse Reactions, Alerts No Data in Section Problem List Concept Problem Description Status Start Date Created Date Resolv ed Date Snomed Code F43.22 Adjustment Disorder, With anxiety Active 2020 Medications No Data in Section Social History Social History Element Description Concept Effective Date Smoking Status Unknown if ever smoked [id number] Immunizations No Data in Section Vital Signs No Data in Section Procedures Date Concept Id Description Targeted Site Concept Targeted Site Concept Type 04/06/2021 80279 Extended Individual Psychotherapy - 45 min CPT Patient has no history of implantable de vices Encounters Encounter Start Date End Date Encounter Type Description Diagnosis Di agnosis Desc Location Author First Name Author Last Name Npid Taxonomy Cod e Taxonomy Desc Phone Number Location Addr1 Location Addr2 Location [facility] Location [facility] Location [facility] [id number] 04/06/2021 04/06/2021 28532 Extended Individual Psych otherapy - 45 min F43.22 Adjustment disorder with anxiety [facility]ly [facility] Brayan Quinteros [id number] Roll Former [id number] [address] [address] Plan of Treatment No Data in Section Lab Results No Data in Section Instructions No Data in Section Insurance Providers Insurance Id Policy Effective Date Policy Thru Date Company N karol [id number] 2020 [employer] Evelyn eckert
--- OUTSIDE RECORDS SUMMARY | 2021-04-16 10:04 | CCD ---
Author Author Rebecca Schmidt Organization Unknown Address [address] [address] Phone Care Team Providers Care Rod And Tube Straightener Name Role Phone Neli Schmidt PCP Allergies, Adverse Reactions, Alerts No Data in Section Problem List Concept Problem Description Status Start Date Created Date Resolv ed Date Snomed Code F43.22 Adjustment Disorder, With anxiety Active 2020 Medications No Data in Section Social History Social History Element Description Concept Effective Date Smoking Status Unknown if ever smoked [id number] Immunizations No Data in Section Vital Signs No Data in Section Procedures Date Concept Id Description Targeted Site Concept Targeted Site Concept Type 02/21/2021 97820 Extended Individual Psychotherapy - 45 min CPT Patient has no history of implantable de vices Encounters Encounter Start Date End Date Encounter Type Description Diagnosis Di agnosis Desc Location Author First Name Author Last Name Npid Taxonomy Cod e Taxonomy Desc Phone Number Location Addr1 Location Addr2 Location [facility] Location [facility] Location [facility] [id number] 02/21/2021 02/21/2021 70366 Extended Individual Psych otherapy - 45 min F43.22 Adjustment disorder with anxiety [facility] Brayan Quinteros [id number] Surveillance Camera Technician [id number] [address] [address] Plan of Treatment No Data in Section Lab Results No Data in Section Instructions No Data in Section Insurance Providers Insurance Id Policy Effective Date Policy Thru Date Company N karol [id number] 2020 [employer] Man[employer] Evelyn eckert
--- OUTSIDE RECORDS SUMMARY | 2021-04-16 13:58 | CCD ---
Author Author [facility] Organization [facility] Address Unknown Phone Unavailable Care Team Providers Care Golf Course Starter Name Role Phone Maring, Loc PA Unavailable [...] Schmidt Unavailable Rothimanshu, Melvi Unavailable Unavailable Sheldon, [place] Lida Unavailable Unavailable Sheldon, [place] Lida Unavailable Unavailable Sheldon, [place] Lida Unavailable Unavailable Sheldon, [place] Lida Unavailable Unavailable Sheldon, [place] Lida Unavailable Unavailable Sheldon, [place] Lida Unavailable Unavailable Sheldon, [place] Lida Unavailable Unavailable Sheldon, [place] Lida Unavailable Unavailable Sheldon, [place] Lida Unavailable Unavailable Sheldon, [place] Lida Unavailable Unavailable Sheldon, [place] Lida Unavailable Unavailable Sheldon, [place] Lida Unavailable Unavailable Sheldon, [place] Lida Unavailable Unavailable Re-disclosure Warning The records [...] is protected by Article 27-F of the [place] State Public Health law. If you continue you may have access to information: Regarding HIV / AIDS; Provided by facilities licensed or operated by the [facility] Office of Mental Health; or Provided by the [facility] Office for People With Developmental Disabilities. If such information is present, then the following [facility] mandated warning applies: This information has been [...] law may result in a fine or fdc sentence or both. A general authorization for the release of medical or other information is NOT sufficient authorization for further disc losure. Family History Family Member Name Family Member Gender Family Member Status Date o f Status Description Data Source(s) Unknown Unknown Problem MEDENT ([facility], ) Unknown Male Problem MEDENT ([facility] Encounters Encounter Providers Location Date Indications Data Source(s ) Extended Individual Psychotherapy - 45 min Attender: [facility] 04/06/2021 12:15:00 PM EDT - 04/06/2021 12:15:00 PM EDT [facility] ([facility]) Health Monitoring - 15 Min Attender: Melvi Quiroz [facility] 04/06/2021 11:15:00 AM EDT - 04/06/2021 11:15:00 AM EDT [facility] ([facility]) Attender: Melvi Quiroz 04/06/2021 12:00:00 AM EDT [facility] ([facility]) Attender: Neli Archibaldce 04/06/2021 12:00:00 AM EDT [facility] ([facility]) ([facility]) [facility] Procedure [address] [place] [address] 04/03/2021 12:00:00 AM EDT eCW1 ([facility]) Extended Individual Psychotherapy - 45 min Attender: [facility] 03/07/2021 12:00:00 PM EDT - 03/07/2021 12:00:00 PM EDT [facility] ([facility]) Attender: Neli Brayan 03/07/2021 12:00:00 AM EDT [facility] ([facility]) Extended Individual Psychotherapy - 45 min Attender: [facility] 02/21/2021 12:00:00 PM EDT - 02/21/2021 12:00:00 PM EDT [facility] ([facility]) Attender: Nlei Schmidt 02/21/2021 12:00:00 AM EDT [facility] ([facility]) Extended Individual Psychotherapy - 45 min Attender: Matthew eleonora [facility] 01/24/2021 12:00:00 PM EDT - 01/24/2021 12:00:00 PM EDT [facility] ([facility]) Attender: Neli Schmidt 01/24/2021 12:00:00 AM EDT [facility] ([facility]) Extended Individual Psychotherapy - 45 min Attender: Matthew eleonora [facility] 01/10/2021 12:00:00 PM EDT - 01/10/2021 12:00:00 PM EDT [facility] ([facility]) Attender: Neli Archibaldce 01/10/2021 12:00:00 AM EDT [facility] ([facility]) Extended Individual Psychotherapy - 45 min Attender: Matthew eleonora [facility] 12/27/2020 12:00:00 PM EDT - 12/27/2020 12:00:00 PM EDT [facility] ([facility]) Attender: Neli Archibaldce 12/27/2020 12:00:00 AM EDT [facility] ([facility]) Psychiatric Diagnostic Evaluation (Non-Medical) Attender: Sanjay Schmidt [facility] 12/14/2020 10:00:00 AM EDT - 12/14/2020 10:00:00 AM EDT [facility] ([facility]) Attender: Neli Archibaldce 12/14/2020 12:00:00 AM EDT [facility] ([facility]) Brief Individual Psychotherapy - 30 min Attender: Neli mckeon [facility] 11/24/2020 02:00:00 AM EDT - 11/24/2020 02:00:00 AM EDT [facility] ([facility]) Attender: Neli Schmidt 11/24/2020 12:00:00 AM EDT [facility] ([facility]) Outpatient Attender: Loc NEGRON 09/23/19 01:50:58 PM EDT - 09/22/2020 02:26:53 PM EDT [facility] ([facility] ) DAYAMI TarangoP-C: [address] [place] [address], Ph. Attender: Lida Sheldon [facility] Medical 07/11/2020 12:00:00 AM EST CHERYL ([facility]) Carlos Fry MD: [address] [place] [address], Ph. Attender: Carlos Fry MD [facility] Medical 06/13/2020 12:00:00 AM EST [facility]ERY[facility] ([facility]) Carlos Fry MD: [address] [place] [address], Ph. Attender: Carlos Fry MD [facility] Medical 06/13/2020 12:00:00 AM EST CHERYL ([facility]) Carlos Fry MD: [address] [place] [address], Ph. Attender: Carlos Fry MD [facility] Medical 06/13/2020 12:00:00 AM EST [facility] ([facility]) Functional Status Immunizations Vaccine Date Status Description Data Source(s) COVID-19, mRNA, LNP-S, PF, 100 mcg/0.5 mL dose 07/11/2020 11 :08:17 AM EST completed 10.5 mL [facility]ERY[facility] ([facility]) COVID-19 VACCINE Moderna 07/11/2020 12:00:00 AM EST [facility] Complete: YESThis Data wa s Submitted to [facility]. COVID-19, mRNA, LNP-S, PF, 100 mcg/0.5 mL dose 06/13/2020 10 :39:41 AM EST completed 06/13/20200.5 mL CHERYL ([facility]) COVID-19, mRNA, LNP-S, PF, 100 mcg/0.5 mL dose 06/13/2020 10 :39:41 AM EST completed 06/13/20200.5 mL CHERYL ([facility]) COVID-19, mRNA, LNP-S, PF, 100 mcg/0.5 mL dose 06/13/2020 10 :39:41 AM EST completed 06/13/20200.5 mL CHERYL ([facility]) COVID-19 VACCINE Moderna 06/13/2020 12:00:00 AM EST completed [facility] Vaccine Series Complete: NOThis Data was Submitted to [facility] Via [employer]. Medications No Information Insurance Providers Payer name Policy type / Coverage type Policy ID Covered libertarian ID Covered libertarian's relationship to krueger Policy Krueger Plan Information [employer] [facility] [id number] SP [id number] [employer] [facility] [id number] SP [id number] [facility] [id number] Self 1 [id number] [facility] Commercial [id number] Self 1 [id number] [facility] Commercial [id number] Self 1 [id number] [facility] Commercial [id number] Self 1 [id number] [facility] o Commercial [id number] Self 1 [id number] [facility] [id number] Self 1 [id number] [facility] [id number] Self 1 [id number] [facility], [facility] [id number] Employee [id number] [facility] Commercial [employer]. [id number] Self [id number] Medicaid S UNAVAILABLE S UNAVAILA BLE SELF PAY UNAVAILABLE SP UNAVAILA BLE [employer] [facility] [id number] SP [id number] MEDICAID - O/P EMERGENCY ROOM [id number] Medicaid S [id number] Managed Care BCBS P [id number] S [id number] [facility] O [id number] S [id number] [facility] Health Maintenance Organization (HMO) [id number] Self [id number] ANSI-Medicaid [id number] ANSI-Medicaid [id number] ANSI-Medicaid [id number] [employer] [facility] [id number] SP [id number] MEDICAID [id number] SP [id number] UN AMERICHOICE XIX O [id number] 18 [id number] Problems, Conditions, and Diagnoses Code Display Name Description Problem Type Effective Dates Data Source(s) F43.22 Adjustment disorder with anxiety Adjustment Diso rder, With anxiety Condition 04/06/2021 12:00:00 AM EDT [facility] ([facility]) [id number] SNOMED CT Concept SNOMED CT Concept Problem 03/30 05:36:13 PM EDT CHERYL ([facility]) [id number] SNOMED CT Concept SNOMED CT Concept Problem 03/30 05:36:13 PM EDT [facility] ([facility]) [id number] SNOMED CT Concept SNOMED CT Concept Problem 03/30 05:36:13 PM EDT [facility] ([facility]) Surgeries/Procedures Procedure Description Date Indications Data Source(s) PREVENT MED SENIOR SOUS CHEF&/RISK FACTOR REDJ SPX 15 MIN 04/06/2021 12:00:00 AM EDT - 04/06/2021 12:00:00 AM EDT [facility] ([facility]) PREVENT MED SENIOR SOUS CHEF&/RISK FACTOR REDJ SPX 15 MIN 04/06 12:00:00 AM EDT [facility] ([facility]) Extended Individual Psychotherapy - 45 min 04/06/2021 12:00:00 AM EDT - 04/06/2021 12:00:00 AM EDT [facility] ([facility]) Extended Individual Psychotherapy - 45 min 12:00:00 AM EDT [facility] ([facility]) Medication: Mirena 52 mg (Levonorgestrel -releasing intrauterine contraceptive system) 04/03/2021 12:00:00 AM EDT eCW1 ([facility]) URINE TEST 04/03/2021 12:00:00 AM EDT eCW1 ([facility]) Extended Individual Psychotherapy - 45 min 03/07/2021 12:00:00 AM EDT - 03/07/2021 12:00:00 AM EDT [facility] ([facility]) Extended Individual Psychotherapy - 45 min 12:00:00 AM EDT [facility] ([facility]) Extended Individual Psychotherapy - 45 min 02/21/2021 12:00:00 AM EDT - 02/21/2021 12:00:00 AM EDT [facility] ([facility]) Extended Individual Psychotherapy - 45 min 12:00:00 AM EDT [facility] ([facility]) Extended Individual Psychotherapy - 45 min 01/24/2021 12:00:00 AM EDT - 01/24/2021 12:00:00 AM EDT [facility] ([facility]) Extended Individual Psychotherapy - 45 min 12:00:00 AM EDT [facility] ([facility]) Extended Individual Psychotherapy - 45 min 01/10/2021 12:00:00 AM EDT - 01/10/2021 12:00:00 AM EDT [facility] ([facility]) Extended Individual Psychotherapy - 45 min 12:00:00 AM EDT [facility] ([facility]) Extended Individual Psychotherapy - 45 min 12/27/2020 12:00:00 AM EDT - 12/27/2020 12:00:00 AM EDT [facility] ([facility]) Extended Individual Psychotherapy - 45 min 12:00:00 AM EDT [facility] ([facility]) Psychiatric Diagnostic Evaluation (Non-Medical) 12/14/2020 12:00:00 AM EDT - 12/14/2020 12:00:00 AM EDT [facility] ([facility]) Psychiatric Diagnostic Evaluation (Non-Medical) 2020 12:00:00 AM EDT [facility] ([facility]) Brief Individual Psychotherapy - 30 min 11/24/2020 12:00:00 AM EDT - 11/24/2020 12:00:00 AM EDT [facility] ([facility]) Brief Individual Psychotherapy - 30 min 11/24/2020 12: 00:00 AM EDT [facility] ([facility]) Results ID Date Data Source [id number] 06/11/2020 12:00:00 AM EST [facility] Name Value Range Interpretation Code Description Data Tori rce(s) Supporting Document(s) SARS coronavirus 2 RNA [Presence] in Res piratory specimen by ALEAH with probe detection [facility] This lab was ordered by April Max and reported by [employer]. ID Date Data Source [id number] 06/11/2020 12:00:00 AM EST [facility] Name Value Range Interpretation Code Description Data Tori rce(s) Supporting Document(s) Carestart Rapid COVID Antigen Test [facility] This lab was reported by April campos. Procedure Social History Code Duration Value Status Description Data Source(s ) Smoking 04/06/2021 12:00:00 AM EDT Unknown if ever smoked comp leted Unknown if ever smoked [facility] ([facility]) Smoking 04/03/2021 12:00:00 AM EDT Former Smoker completed Former Smoker eCW1 ([facility]) Smoking 03/07/2021 12:00:00 AM EDT Unknown if ever smoked comp leted Unknown if ever smoked [facility] ([facility]) Smoking 02/21/2021 12:00:00 AM EDT Unknown if ever smoked comp leted Unknown if ever smoked [facility] ([facility]) Smoking 01/24/2021 12:00:00 AM EDT Unknown if ever smoked comp leted Unknown if ever smoked [facility] ([facility]) Smoking 01/10/2021 12:00:00 AM EDT Unknown if ever smoked comp leted Unknown if ever smoked [facility] ([facility]) Smoking 12/27/2020 12:00:00 AM EDT Unknown if ever smoked comp leted Unknown if ever smoked [facility] ([facility]) Smoking 12/14/2020 12:00:00 AM EDT Unknown if ever smoked comp leted Unknown if ever smoked [facility] ([facility]) Smoking 11/24/2020 12:00:00 AM EDT Unknown if ever smoked comp leted Unknown if ever smoked [facility] ([facility]) Vital Signs ID Date Data Source UNK Name Value Range Interpretation Code Description Data Source(s) Body height 62.25 in Normal (applies to non-numeric resu lts) 62.25 in [facility] ([facility]) Body weight Measured 103.00 lbs Normal (applies to n on-numeric results) 103.00 lbs [facility] ([facility]) Body mass index (BMI) [Ratio] 18.69 kg/m2 No rmal (applies to non-numeric results) 18.69 kg/m2 [facility] ([facility]) Systolic blood pressure 102 mm[Hg] Normal (applies t o non-numeric results) 102 mm[Hg] [facility] ([facility]) Diastolic blood pressure 60 mm[Hg] Normal (applies to non-numeric results) 60 mm[Hg] [facility] ([facility]) Body height --lying 84 min Normal (applies to non-nume ashkan results) 84 min [facility] ([facility]) Respiratory rate 18 min Normal (applies to non-numeric results) 18 min [facility] ([facility]) Body weight 128 [lb_av] 128 [lb_av] eCW1 ([facility]) Body weight 58.06 kg 58.06 kg W1 ([facility]) Body height 62 [in_i] 62 [in_i] eCW1 ([facility]) Body mass index (BMI) [Ratio] 23.41 kg/m2 23.41 kg/m2 eCW1 ([facility]) Systolic blood pressure 120 mm[Hg] 120 mm[Hg] e CW1 ([facility]) Diastolic blood pressure 76 mm[Hg] 76 mm[Hg] eCW1 ([facility])
--- NOTE | 2021-04-16 15:02 | REP ---
INDICATION: CHEST PAIN. COMPARISON: None. TECHNIQUE: Portable FINDINGS: The technique utilized in obtaining the radiograph has magnified the cardiac silhouette and accentuated the interstitial markings. The superior mediastinal structures are midline. The cardiac silhouette is unremarkable in size, shape, and position. The diaphragmatic surfaces of the lungs are regular, and the costophrenic angles are clear. The pulmonary eli are clear. The imaged osseous structures are intact. IMPRESSION: There is no acute cardiopulmonary disease. <Electronically signed by Evangelist Garg > 04/16/21 [id number]
[2021-04-16 15:18] LABS: BASO % 0.2 % (0.0-1.0); EOS % 0.3 % (0.0-3.0); HEMATOCRIT 39.8 % (36.0-47.0); HEMOGLOBIN 13.1 g/dl (12.0-15.5); LYMPH # 2.2 10^3/uL (1.5-5.0); LYMPH % 18.5 % (24.0-44.0); MEAN CORPUSCULAR HEMOGLOBIN 27.8 pg (27.0-33.0); MEAN CORPUSCULAR HGB CONC 32.9 g/dl (32.0-36.5); MEAN CORPUSCULAR VOLUME 84.3 fl (80.0-96.0); MONO # 0.6 10^3/uL (0.0-0.8); NEUTROPHILS # 8.8 10^3/uL (1.5-8.5); NEUTROPHILS % 75.6 % (36.0-66.0); PLATELET COUNT, AUTOMATED 351 10^3/uL (150-450); RED BLOOD COUNT 4.72 10^6/uL (4.00-5.40); WHITE BLOOD COUNT 11.7 10^3/uL (4.0-10.0)
[2021-04-16 15:34] LABS: ALBUMIN 3.9 GM/DL (3.2-5.2); ALT/SGPT 35 U/L (12-78); BILIRUBIN,DIRECT 0.1 MG/DL (0.0-0.2); BILIRUBIN,TOTAL 0.4 MG/DL (0.2-1.0); BLOOD UREA NITROGEN 10 MG/DL (7-18); CARBON DIOXIDE LEVEL 24 MEQ/L (21-32); CHLORIDE LEVEL 109 MEQ/L (98-107); GLOMERULAR FILTRATION RATE > 60.0 (>60); GLUCOSE, FASTING 90 MG/DL (70-100); LIPASE 120 U/L (73-393); POTASSIUM SERUM 3.8 MEQ/L (3.5-5.1); SODIUM LEVEL 139 MEQ/L (136-145); TOTAL PROTEIN 7.5 GM/DL (6.4-8.2)
[2021-04-16] MEDS ORDERED: ISOVUE-370 76% 100ML VIAL As Ordered ONE (15:35)
--- NOTE | 2021-04-16 16:12 | REP ---
INDICATION: R/O THORACIC/ABDOMINAL AORTIC DISSECTION COMPARISON: None. TECHNIQUE: CT angiography of the thoracic aorta after the intravenous administration of 100 cc Isovue 370 FINDINGS: The thoracic aorta is of normal caliber. There is no evidence of aneurysmal dilatation or intimal dissection. There is no mediastinal or hilar adenopathy. There are no pleural or pericardial effusions. The imaged osseous structures are within normal limits. Evaluation of the lung eli shows no abnormal nodules, masses, or opacities. IMPRESSION: CT angiography chest is within normal limits as described above. <Electronically signed by Evangelist Garg > 04/16/21 [id number]
[2021-04-16 16:14] VITALS: BP 119/71
--- NOTE | 2021-04-16 16:17 | REP ---
INDICATION: R/O THORACIC/ABDOMINAL AORTIC DISSECTION. COMPARISON: CT thoracic aortic today TECHNIQUE: Bolus 100 mL Isovue 370 scanning through the abdomen with coronal and sagittal reconstructions and MIP reformats. FINDINGS: 2 lung bases are clear. Heart not enlarged. No pericardial thickening or effusion and no hiatal hernia. There is no hepatosplenomegaly, focal hepatic or splenic mass nor intrahepatic biliary dilatation. Gallbladder shows a dependent calcified stone. Pancreas without any acute finding. Adrenal glands normal. Kidneys show symmetric enhancement. Extrarenal pelvis is noted on the right. There is a lower pole calcification which appears to be in a pyramid on the right. No dilatation of the right intrarenal collecting system. No visible ureteral stone on either side. The lower thoracic and abdominal aorta included on this field of view into the mid external iliacs is without stone aneurysm or dissection. There is no periaortic adenopathy. No retroperitoneal hematoma. That portion of the colon and small bowel loops in the visible abdomen was unremarkable. No inflammatory changes about the cecum. Small bowel loops unremarkable. Right and left renal arteries, celiac axis and SM A were grossly unremarkable. An MARYCARMEN is seen and unremarkable. The bone windows show no acute finding. IMPRESSION: 1. Normal CT abdomen. No evidence of aortic aneurysm or dissection from the lower thoracic through the bilateral mid external iliac vessels. Great vessels off the arch are all unremarkable and without stenosis or aneurysm. 2. No abdominal mass, inflammatory change, ascites or free air. 3. Extrarenal pelvis on the right without intrarenal dilatation of the collecting system. There is a small calcification in a pyramid within lower pole of the right kidney. No definite acute finding. 4. Colon and small bowel loops unremarkable. No ascites or free air. No abscess or mass. <Electronically signed by Mak Au > 04/16/21 0464
[2021-04-16] MEDS ORDERED: OMEP40CA4 PO (17:04)
--- NOTE | 2021-04-17 08:00 | ECGEPIP ---
[facility] - ED Test Date: 2021-04-16 Pat Name: TRINY VERA Department: Room: - Gender: Female Physician Compensation Analyst: MARY : 1990 Requested By: Emily Walters PA-C Order Number: [id number] Reading MD: Panchito Fritz Measurements Intervals [place] Rate: 69 P: 56 NC: 110 QRS: 78 QRSD: 86 T: 55 QT: 400 QTc: 428 Interpretive Statements Sinus rhythm with marked sinus arrhythmia with short NC NO PRIORS FOR COMPARISON Electronically Signed on 04-17-2021 8:00:20 EDT by Panchito Fritz
== END 2021-04-16 17:53 | disposition home or self-care (01) ==
LOC: M ED 09:57
DX: N20.0 Calculus of kidney (principal); K80.20 Calculus of gallbladder without cholecystitis without obstruction
CPT/HCPCS: 71045; 71275; 74175; 80048; 80076; 83690; 85025; 93005; 96360; 96361; 99284; Q9967

== ENCOUNTER → 2022-11-22 | Outpatient (CLI) | payer OTHER ==
[~2022-11-22] MED LIST changes: +OMEP40CA4 PO
[2022-11-22 10:26] LABS: BASO # 0.1 10^3/uL (0.0-0.2); BASO % 0.8 % (0.0-1.0); EOS # 0.3 10^3/uL (0.0-0.5); EOS % 3.9 % (0.0-3.0); HEMATOCRIT 44.5 % (36.0-47.0); HEMOGLOBIN 14.9 g/dl (12.0-15.5); LYMPH # 2.2 10^3/uL (1.5-5.0); LYMPH % 34.2 % (24.0-44.0); MEAN CORPUSCULAR HEMOGLOBIN 31.2 pg (27.0-33.0); MEAN CORPUSCULAR HGB CONC 33.5 g/dl (32.0-36.5); MEAN CORPUSCULAR VOLUME 93.3 fl (80.0-96.0); MONO # 0.5 10^3/uL (0.0-0.8); MONO % 7.6 % (2.0-8.0); NEUTROPHILS # 3.4 10^3/uL (1.5-8.5); NEUTROPHILS % 53.3 % (36.0-66.0); PLATELET COUNT, AUTOMATED 346 10^3/uL (150-450); RED BLOOD COUNT 4.77 10^6/uL (4.00-5.40); WHITE BLOOD COUNT 6.4 10^3/uL (4.0-10.0)
[2022-11-22 10:28] LABS: ALBUMIN 3.9 G/DL (3.2-5.2); ALKALINE PHOSPHATASE 36 U/L (46-116); ALT/SGPT 14 U/L (7.0-40); AST/SGOT < 8 U/L (<34); BILIRUBIN,TOTAL 0.4 MG/DL (0.3-1.2); BLOOD UREA NITROGEN 12 MG/DL (9-23); CALCIUM LEVEL 9.4 MG/DL (8.5-10.1); CARBON DIOXIDE LEVEL 29 MMOL/L (20-31); CHLORIDE LEVEL 107 MMOL/L (98-107); CHOLESTEROL LEVEL 161 MG/DL (<200); CHOLESTEROL RISK RATIO 2.72 (<5); CREATININE FOR GFR 0.64 MG/DL (0.55-1.30); GLOMERULAR FILTRATION RATE > 60.0 (>60); GLUCOSE, FASTING 87 MG/DL (60-100); HDL CHOLESTEROL 59.1 MG/DL (>40); LDL CHOLESTEROL 88.7 MG/DL (<100); NON-HDL-C 101.9 MG/DL; POTASSIUM SERUM 4.8 MMOL/L (3.5-5.1); SODIUM LEVEL 141 MMOL/L (136-145); TOTAL PROTEIN 6.8 G/DL (5.7-8.2); TRIGLYCERIDES LEVEL 66 MG/DL (<150)
[2022-11-22 10:39] LABS: FREE T4 1.37 NG/DL (0.89-1.76); THYROID STIMULATING HORMONE 1.563 uIU/ML (0.55-4.78)
[2022-11-22 10:54] LABS: HEMOGLOBIN A1c 4.9 % (4.0-6.0)
== END ==
LOC: M PLALAB 08:09
PROVIDERS: ATTEND Nurse Practitioner Family
DX: F41.9 Anxiety disorder, unspecified (principal)